=== PATIENT | male | born 1975 | race Caucasian/White ===

== ENCOUNTER 2016-10-01 21:10 | Emergency (ER) | payer SELFPAY | END 2016-10-02 00:14 | disposition left against medical advice (07) | LOC: ER 21:10 | DX: R60.0 Localized edema (principal); Z59.0 Homelessness; Z87.891 Personal history of nicotine dependence; Z87.01 Personal history of pneumonia (recurrent); Z88.6 Allergy status to analgesic agent; Z88.5 Allergy status to narcotic agent; Z88.8 Allergy status to other drugs, medicaments and biological substances | CPT/HCPCS: 80053; 80305; 80307; 81001; 83605; 84484; 85025; 85610; 85730; 87040; 99283 ==